=== PATIENT | male | born 1965 | race Caucasian/White ===

== ENCOUNTER 2020-10-09 22:46 | Emergency (ER) | payer BC ==
[~2020-10-09] VITALS: Ht 193 cm; Wt 81.8 kg
[2020-10-09 22:52] VITALS: TEMP 97.9
[2020-10-09 23:25] LABS: BASO % 0.5 % (0.0-2.0); EOS # 0.1 (0.0-0.7); EOS % 0.8 % (0-4.0); GRAN # 4.3 (1.4-6.5); GRAN % 64.9 % (42.2-75.2); HEMATOCRIT 37.9 % (42.0-52.0); HEMOGLOBIN 12.4 g/dl (13.5-18.0); LYMPH # 1.5 (1.2-3.4); LYMPH % 23.4 % (20.0-51.0); MEAN CELL VOLUME 94 fl (80.0-100.0); MEAN CORPUSCULAR HEMOGLOBIN 31 pg (27.0-31.0); MEAN CORPUSCULAR HGB CONC 33 g/dl (33.0-37.0); MEAN PLATELET VOLUME 10.4 fl (7.4-10.4); MONO # 0.7 (0.1-0.6); MONO % 10.2 % (1.7-9.3); PLATELET COUNT 128 K/mm3 (130-400); RED BLOOD COUNT 4.03 M/mm3 (4.20-5.60); REDCELL DISTRIBUTION WIDTH-CV 12.4 % (11.5-14.5)
[2020-10-09 23:33] LABS: ALANINE AMINOTRANSFERASE 26 U/L (4-49); ALKALINE PHOSPHATASE 36 U/L (50-136); ANION GAP 6 mmol/L (7-16); AST,SGOT 24 U/L (15-37); BILIRUBIN,TOTAL 0.8 mg/dL (0.0-1.0); BLOOD UREA NITROGEN 18 mg/dL (9-20); CALCIUM 8.6 mg/dL (8.4-10.2); CARBON DIOXIDE 28 mmol/L (22-30); CHLORIDE 105 mmol/L (98-107); CREATININE, serum 1.03 (0.66-1.25); GLUCOSE 92 mg/dL (74-106); MAGNESIUM 1.9 mg/dL (1.6-2.3); POTASSIUM 3.8 mmol/L (3.4-5.0); SODIUM 140 mmol/L (137-145); TOTAL PROTEIN 6.5 gm/dL (6.4-8.2)
[2020-10-09 23:45] LABS: TROPONIN-I < 0.012 ng/mL (0.000-0.035)
[2020-10-10 02:22] VITALS: BP 134/94; PULSE 53
== END 2020-10-10 02:22 | disposition home or self-care (01) ==
LOC: COL.ER 22:46
PROVIDERS: Emergency Medicine
DX: R00.1 Bradycardia, unspecified (principal); R55 Syncope and collapse; Z82.3 Family history of stroke
CPT/HCPCS: J7040

== ENCOUNTER 2020-11-04 09:07 | Day surgery (SDC) | payer BC ==
[2020-11-04] VITALS (10 sets, daily range): BP systolic 91–126; BP diastolic 57–83; PULSE 47–51; TEMP 97
[~2020-11-04] VITALS: Ht 193.1 cm; Wt 85.0 kg
[2020-11-04] MEDS ORDERED: TOPROL XL 25MG25 MG PO (09:34)
[2020-11-04] MEDS ORDERED: LIPITOR 10MG10 MG PO (09:34)
[2020-11-04] MEDS ORDERED: DESYREL 100MG100 MG PO (09:35)
[2020-11-04] MEDS ORDERED: PROZAC 20MG20 MG PO (09:35)
[2020-11-04] MEDS ORDERED: XANAX .25M0.25 MG/TA PO (09:35)
--- NOTE | 2020-11-04 09:52 | NUR ---
simeon Peter pharmaceutical laboratory technician notified that intake questions will be completed in approximatley 10 mins, at which time pt will be available for rapid covid swabbing.
[2020-11-04 09:57] LABS: HEMATOCRIT 40.9 % (42.0-52.0); HEMOGLOBIN 13.3 g/dl (13.5-18.0); MEAN CELL VOLUME 94 fl (80.0-100.0); MEAN CORPUSCULAR HEMOGLOBIN 31 pg (27.0-31.0); MEAN CORPUSCULAR HGB CONC 33 g/dl (33.0-37.0); MEAN PLATELET VOLUME 10.4 fl (7.4-10.4); PLATELET COUNT 140 K/mm3 (130-400); RED BLOOD COUNT 4.34 M/mm3 (4.20-5.60); REDCELL DISTRIBUTION WIDTH-CV 12.1 % (11.5-14.5)
[2020-11-04] MEDS ORDERED: ASPIRIN E.C. 8181 MG PO (10:03)
[2020-11-04] MEDS ORDERED: VITAMIN D31000 IU PO (10:04)
[2020-11-04] MEDS ORDERED: ONE-A-DAY ESSE1 EACH PO (10:04)
[2020-11-04 10:06] LABS: INR 1.1 (0.8-3.0)
[2020-11-04 10:09] LABS: PARTIAL THROMBOPLASTIN TIME 30.3 SECONDS (26.0-37.0)
[2020-11-04 10:11] LABS: CALCIUM 9.2 mg/dL (8.4-10.2); CREATININE, serum 0.96 (0.66-1.25)
--- NOTE | 2020-11-04 11:29 | NUR ---
SEE MERGE FOR ALL MEDICATION ADMINISTRATION TIMES, INTRA AND POST SEDATION ASSESSMENTS
--- NOTE | 2020-11-04 15:00 | NUR ---
DC instructions reviewed with pt and , both express understanding. Air has been removed from TR band in 2ml increments without bleeding or complications. Rt radial puncture site now dressed with 2x2 and bandaid. Pt has tolerated PO without issue. He is able to change position with no c/o dizziness or issue. He is steady on feet about room. IV DC'd with catheter intact and bleeding controlled at site. Pt has been on tele monitor since return from heart cath. He is assisted out to 's car by wheelchair.
== END 2020-11-04 16:19 | disposition home or self-care (01) ==
LOC: COL.VAS 09:07
PROVIDERS: Internal Medicine Cardiovascular Disease
DX: I25.10 Atherosclerotic heart disease of native coronary artery without angina pectoris (principal); I25.41 Coronary artery aneurysm; I47.2 Ventricular tachycardia; I08.1 Rheumatic disorders of both mitral and tricuspid valves; Q25.43 Congenital aneurysm of aorta; I77.810 Thoracic aortic ectasia; E78.5 Hyperlipidemia, unspecified; F41.9 Anxiety disorder, unspecified; Z20.822 Contact with and (suspected) exposure to COVID-19; Z79.82 Long term (current) use of aspirin; Z79.899 Other long term (current) drug therapy
CPT/HCPCS: C1764; J1644; J2250; J3010; Q9967

== ENCOUNTER 2020-12-02 10:54 | Emergency (ER) | payer BC ==
[~2020-12-02] VITALS: Ht 193 cm; Wt 84.1 kg
[~2020-12-02 10:54] MED LIST: ASPIRIN E.C. 8181 MG PO; DESYREL 100MG100 MG PO; LIPITOR 10MG10 MG PO; ONE-A-DAY ESSE1 EACH PO; PROZAC 20MG20 MG PO; TOPROL XL 25MG25 MG PO; VITAMIN D31000 IU PO; XANAX .25M0.25 MG/TA PO
[2020-12-02 11:03] VITALS: TEMP 97.8
[2020-12-02 11:30] LABS: BASO % 0.7 % (0.0-2.0); EOS # 0.1 (0.0-0.7); EOS % 1.4 % (0-4.0); GRAN # 2.5 (1.4-6.5); HEMATOCRIT 40.6 % (42.0-52.0); HEMOGLOBIN 13.2 g/dl (13.5-18.0); LYMPH # 1.4 (1.2-3.4); LYMPH % 31.2 % (20.0-51.0); MEAN CELL VOLUME 94 fl (80.0-100.0); MEAN CORPUSCULAR HEMOGLOBIN 31 pg (27.0-31.0); MEAN CORPUSCULAR HGB CONC 33 g/dl (33.0-37.0); MEAN PLATELET VOLUME 10.3 fl (7.4-10.4); MONO # 0.5 (0.1-0.6); MONO % 10.5 % (1.7-9.3); PLATELET COUNT 136 K/mm3 (130-400); RED BLOOD COUNT 4.31 M/mm3 (4.20-5.60)
[2020-12-02 11:40] LABS: INR 1.1 (0.8-3.0); PROTHROMBIN TIME 12.4 SECONDS (9.7-12.8)
[2020-12-02 11:46] LABS: D-DIMER < 200.00 ng/mLDDu (200-230)
[2020-12-02 11:51] LABS: ALANINE AMINOTRANSFERASE 27 U/L (4-49); ALBUMIN 4.4 gm/dL (3.5-5.0); ALKALINE PHOSPHATASE 36 U/L (50-136); ANION GAP 6 mmol/L (7-16); AST,SGOT 29 U/L (15-37); BLOOD UREA NITROGEN 22 mg/dL (9-20); CALCIUM 9.2 mg/dL (8.4-10.2); CARBON DIOXIDE 30 mmol/L (22-30); CHLORIDE 102 mmol/L (98-107); CREATININE, serum 0.99 (0.66-1.25); GLUCOSE 83 mg/dL (74-106); POTASSIUM 4.5 mmol/L (3.4-5.0); SODIUM 137 mmol/L (137-145); TOTAL PROTEIN 7.4 gm/dL (6.4-8.2)
[2020-12-02 12:01] LABS: C-REACTIVE PROTEIN < 0.5 mg/dL (0.0-0.9); TROPONIN-I < 0.012 ng/mL (0.000-0.035)
[2020-12-02 13:06] LABS: COLLECTION METHOD CLEAN CATCH
[2020-12-02 13:15] LABS: PH 8 (5-8); SQUAMOUS EPITHELIAL None Seen /hpf; URINE APPEARANCE Clear; URINE BACTERIA None Seen /hpf; URINE BILIRUBIN Negative (NEGATIVE); URINE BLOOD Negative (NEGATIVE); URINE COLOR Yellow; URINE GLUCOSE Negative (NEGATIVE); URINE KETONE Trace (NEGATIVE); URINE LEUKOCYTE ESTERASE Negative (NEGATIVE); URINE NITRATE Negative (NEGATIVE); URINE PROTEIN(semi-quant) Negative (NEGATIVE); URINE RBC None Seen /hpf; URINE UROBILINOGEN Negative (NEGATIVE)
[2020-12-02 13:59] VITALS: BP 120/85; PULSE 53
== END 2020-12-02 13:59 | disposition home or self-care (01) ==
LOC: COL.ER 10:54
PROVIDERS: Emergency Medicine
DX: R06.02 Shortness of breath (principal); Z79.82 Long term (current) use of aspirin; Z95.818 Presence of other cardiac implants and grafts
CPT/HCPCS: J7030; Q9967

== ENCOUNTER → 2021-01-28 | Outpatient (CLI) | payer BC | LOC: COL.PUL 09:54 | DX: R06.02 Shortness of breath (principal) | CPT/HCPCS: J7674 ==

== ENCOUNTER 2021-09-02 18:15 | Observation (INO) | payer BC ==
[~2021-09-02] VITALS: Ht 193 cm; Wt 87.0 kg
[2021-09-02 19:09] LABS: BASO % 0.6 % (0.0-2.0); EOS # 0.1 K/mm3 (0.0-0.7); EOS % 1.6 % (0.0-4.0); GRAN # 2.8 K/mm3 (1.4-6.5); GRAN % 56.7 % (42.2-75.2); HEMATOCRIT 38.9 % (42.0-52.0); HEMOGLOBIN 12.8 g/dl (13.5-18.0); LYMPH # 1.6 K/mm3 (1.2-3.4); LYMPH % 31.3 % (20.0-51.0); MEAN CELL VOLUME 94 fl (80.0-100.0); MEAN CORPUSCULAR HEMOGLOBIN 31 pg (27-31); MEAN CORPUSCULAR HGB CONC 33 g/dl (33.0-37.0); MEAN PLATELET VOLUME 10.4 fl (7.4-10.4); MONO # 0.5 K/mm3 (0.1-0.6); MONO % 9.6 % (1.7-9.3); PLATELET COUNT 144 K/mm3 (130-400); RED BLOOD COUNT 4.15 M/mm3 (4.20-5.60); REDCELL DISTRIBUTION WIDTH-CV 12.2 % (11.5-14.5)
[2021-09-02 19:25] LABS: ALANINE AMINOTRANSFERASE 22 U/L (0-55); ALBUMIN 4.3 gm/dL (3.5-5.0); ALKALINE PHOSPHATASE 43 U/L (40-150); ANION GAP 8 mmol/L (7-16); AST,SGOT 19 U/L (5-34); BLOOD UREA NITROGEN 13 mg/dL (8-26); CALCIUM 8.8 mg/dL (8.4-10.2); CARBON DIOXIDE 25 mmol/L (22-29); CHLORIDE 106 mmol/L (98-107); CREATININE, serum 1.06 mg/dL (0.72-1.25); GLUCOSE 84 mg/dL (70-99); MAGNESIUM 1.8 mg/dL (1.6-2.6); POTASSIUM 4.4 mmol/L (3.5-4.5); SODIUM 139 mmol/L (136-145); TOTAL PROTEIN 6.8 gm/dL (6.2-8.1)
[2021-09-02 19:30] LABS: INR 1.1 (0.8-3.0); PROTHROMBIN TIME 12.1 SECONDS (9.7-12.8)
[2021-09-02 19:38] LABS: TROPONIN-I < 0.010 ng/mL (0.00-0.033)
[2021-09-02] MEDS ORDERED: CORGARD80 MG PO (22:03)
--- NOTE | 2021-09-03 00:08 | NUR ---
PT ARRIVES VIA W/C TO ROOM 348, SPOUSE ACCOMPANIES. IS ALERT AND ORIENTED X4. HAS INT TO LEFT AC, FLUSHES WELL. PT ASKING FOR HOME MEDS FOR TONIGHT. SPOUSE NKECHI LEAVES FOR HOME.
[2021-09-03] MEDS ORDERED: CORGARD40 MG PO (00:14)
[2021-09-03 00:17] VITALS: BP 125/76; PULSE 51; TEMP 97.9
--- NOTE | 2021-09-03 00:27 | NUR ---
HOME MEDS ORDERED BY MARNI CATALAN. DOSES GIVEN AT THIS TIME. ADMISSION QUESTIONS COMPLETED. PT ORIENTED TO ROOM AND BED CONTROLS. DENIES NEEDS AT THIS TIME. TAKES GUSTAVO PUDDING WITH MEDS.
[2021-09-03 03:10] VITALS: BP 103/68; PULSE 62; TEMP 98.1
--- NOTE | 2021-09-03 06:00 | NUR ---
PT DENIES PAIN, NO ISSUES WITH TELEMETRY DURING THE NIGHT, SB REPORTED BY ESOL TEACHER ASSISTANT.
[2021-09-03 06:56] LABS: BASO % 0.4 % (0.0-2.0); EOS # 0.1 K/mm3 (0.0-0.7); EOS % 1.5 % (0.0-4.0); GRAN % 55.4 % (42.2-75.2); HEMOGLOBIN 11.9 g/dl (13.5-18.0); LYMPH # 1.8 K/mm3 (1.2-3.4); LYMPH % 32.8 % (20.0-51.0); MEAN CELL VOLUME 92 fl (80.0-100.0); MEAN CORPUSCULAR HEMOGLOBIN 31 pg (27-31); MEAN CORPUSCULAR HGB CONC 34 g/dl (33.0-37.0); MONO # 0.5 K/mm3 (0.1-0.6); MONO % 9.5 % (1.7-9.3); PLATELET COUNT 117 K/mm3 (130-400); RED BLOOD COUNT 3.81 M/mm3 (4.20-5.60); REDCELL DISTRIBUTION WIDTH-CV 12.3 % (11.5-14.5)
[2021-09-03 06:57] LABS: HEMATOCRIT 35.2 % (42.0-52.0)
[2021-09-03 07:09] LABS: CALCIUM 8.3 mg/dL (8.4-10.2); CREATININE, serum 0.98 mg/dL (0.72-1.25); POTASSIUM 3.8 mmol/L (3.5-4.5)
[2021-09-03 07:43] VITALS: BP 109/78; PULSE 50; TEMP 97.6
--- NOTE | 2021-09-03 10:26 | NUR ---
Social Work student and DARRICK John met with patient to discuss discharge planning. Patient lives here in [place] with his , Amairani (ph#[phone]). Patient's PCP is Dr. Snyder, and he receives his medications from [facility]. Patient does not utilize any DME, and he is independent with his ADL's. Patient does not have a DPOA-HC on file and was not interested in filling one out at this time. Discharge plan: Home
--- NOTE | 2021-09-03 10:36 | NUR ---
PT DENIES CHEST PAIN OR PALPATATIONS THIS MORNING. HOWEVER HE STILL FEELS LIGHT HEADED INTERMITTENTLY. HE STATES EPIDODES LAST FOR ABOUT 1 MIN AND OCCUR WHEN HE IS SITTING STILL. VSS.
[2021-09-03 11:32] VITALS: BP 118/78; PULSE 47; TEMP 97.8
--- NOTE | 2021-09-03 12:45 | NUR ---
Initial visit; Patient and his thanked Brokerage Branch Manager for looking in on him and offering Spiritual Care.
[2021-09-03 16:00] VITALS: BP 122/75; PULSE 57; TEMP 98.5
[2021-09-03] MEDS ORDERED: TAMBOCOR50 MG PO (16:30)
--- NOTE | 2021-09-03 17:38 | NUR ---
PT MET CRITERIA FOR DISCHARGE, VSS. DENIES CHEST PAIN OR PALPATIONS. IV REMOVED WITHOUT COMPLICATIONS, CATHETER INTACT. DISCHARGE INSTRUCTIONS GIVEN, PT VERBALIZED UNDERSTANDING. PT AWARE OF F/U APPT AND OF PRESCRIPTIONS TO SIZE ROLLER OPERATOR. PT DC TO HOME VIA AMBULATION ACCOMPANIED BY THIS NURSE.
== END 2021-09-03 17:41 | disposition home or self-care (01) ==
LOC: COL.ER 18:15 → SURG 20:35
PROVIDERS: Physician Assistant; Student in an Organized Health Care Education/Training Program; ADMIT Internal Medicine
DX: I47.2 Ventricular tachycardia (principal); I34.1 Nonrheumatic mitral (valve) prolapse; G93.40 Encephalopathy, unspecified; I10 Essential (primary) hypertension; E78.5 Hyperlipidemia, unspecified; F41.9 Anxiety disorder, unspecified; F32.A Depression, unspecified; Z20.822 Contact with and (suspected) exposure to COVID-19; Z79.01 Long term (current) use of anticoagulants; Z95.810 Presence of automatic (implantable) cardiac defibrillator; Z79.82 Long term (current) use of aspirin; Z79.899 Other long term (current) drug therapy
CPT/HCPCS: G0378; J1650; J7030

== ENCOUNTER 2021-09-26 07:19 | Day surgery (SDC) | payer BC ==
[~2021-09-26] VITALS: Ht 193 cm; Wt 88.5 kg
[~2021-09-26 07:19] MED LIST changes: +CORGARD40 MG PO; +CORGARD80 MG PO; +TAMBOCOR50 MG PO
[2021-09-26 07:44] VITALS: BP 113/86; PULSE 49; TEMP 96.9
[2021-09-26 08:50] VITALS: BP 100/69; PULSE 51; TEMP 97
--- NOTE | 2021-09-26 08:50 | NUR ---
Patient arrives to [facility] bay 5 for recovery. He is alert and oriented. He ambulates with standby assist to the chair in his room. Monitoring is applied - VSS on room air. His is at the bedside. PIV to TKO. He denies pain or nausea. He is offered and receives coffee and a muffin.
[2021-09-26 09:05] VITALS: BP 98/72; PULSE 49
--- NOTE | 2021-09-26 09:05 | NUR ---
Dr. Austin speaks with the patient and his at the bedside.
[2021-09-26 09:20] VITALS: BP 99/70; PULSE 50
--- NOTE | 2021-09-26 09:32 | NUR ---
Patient has met discharge criteria. Discharge instructions are discussed. He denies any questions and verbalizes understanding. PIV is removed with catheter intact and hemostasis achieved. He changes to his clothing independently. He is escorted to the exit via wheelchair by staff. He is discharged to the care of his , who drives him home in a private vehicle at 0932.
== END 2021-09-26 09:32 | disposition home or self-care (01) ==
LOC: SDCO 07:19
DX: Z12.11 Encounter for screening for malignant neoplasm of colon (principal); D12.4 Benign neoplasm of descending colon; K57.30 Diverticulosis of large intestine without perforation or abscess without bleeding
CPT/HCPCS: J2405; J2704; J7030